=== PATIENT | male | born 1960 | race Caucasian/White ===

== ENCOUNTER 2019-08-05 10:04 | Emergency (ER) | payer OTHER ==
[~2019-08-05] VITALS: Ht 175.3 cm; Wt 74.9 kg
[2019-08-05 10:40] LABS: BASOPHILS # (AUTO) 0.1 X10'3 (0-0.2); BASOPHILS % (AUTO) 0.7 % (0-1); EOSINOPHILS # (AUTO) 0.1 X10'3 (0-0.9); EOSINOPHILS % (AUTO) 1.2 % (0-6); HEMATOCRIT 47.4 % (42.0-52.0); HEMOGLOBIN 16.2 g/dl (14.0-17.9); LYMPHOCYTES # (AUTO) 2.4 X10'3 (1.1-4.8); LYMPHOCYTES % (AUTO) 20.9 % (21-51); MEAN CORPUSCULAR HEMOGLOBIN 32.1 PG (27.0-31.0); MEAN CORPUSCULAR HGB CONC 34.1 g/dL (33.0-36.5); MEAN CORPUSCULAR VOLUME 94.3 FL (78-98); MEAN PLATELET VOLUME 7.9 FL (7.4-10.4); MONOCYTES % (AUTO) 8.6 % (2-12); NEUTROPHILS # (AUTO) 7.9 X10'3 (1.8-7.7); NEUTROPHILS % (AUTO) 68.6 % (42-75); PLATELET COUNT 308 X10'3 (140-440); RED BLOOD COUNT 5.03 X10'6 (4.70-6.10); RED CELL DISTRIBUTION WIDTH 14.4 % (11.5-14.5); WHITE BLOOD COUNT 11.5 X10'3 (4.5-11.0)
[2019-08-05 10:44] LABS: CLARITY,URINE CLEAR (Clear); COLOR,URINE YELLOW (Yellow); GLUCOSE, URINE NEGATIVE (Neg); KETONES,URINE NEGATIVE (Neg); LEUKOCYTE ESTERASE ,URINE NEGATIVE (Neg); NITRITES, URINE NEGATIVE (Neg); OCCULT BLOOD,URINE NEGATIVE (Neg); PROTEIN,URINE NEGATIVE (Neg); UROBILINOGEN,URINE 0.2 E.U/dL (0.2-1.0)
[2019-08-05 10:46] LABS: UA COLLECTION TYPE VOIDED
[2019-08-05 10:51] LABS: PARTIAL THROMBOPLASTIN TIME 29 SECONDS (22-32)
[2019-08-05 10:55] LABS: ALANINE AMINOTRANSFERASE 25 U/L (12-78); ALBUMIN 3.7 G/DL (3.4-5.0); ALBUMIN/GLOBULIN RATIO 0.9 (1.1-1.5); ALKALINE PHOSPHATASE 79 IU/L (46-116); ANION GAP 6 (8-16); ASPARTATE AMINO TRANSFERASE 17 U/L (10-37); BILIRUBIN,TOTAL 1.5 MG/DL (0.1-1.0); BLOOD UREA NITROGEN 9 MG/DL (7-18); BUN/CREATININE RATIO 7.4 (5.4-32.0); CALCIUM 8.9 MG/DL (8.5-10.1); CHLORIDE 103 MMOL/L (99-107); CREATININE 1.21 MG/DL (0.60-1.10); GLUCOSE 95 MG/DL (70-104); LIPASE 254 U/L (73-393); POTASSIUM 3.6 MMOL/L (3.5-5.1); SODIUM 138 MMOL/L (135-145); TOTAL CARBON DIOXIDE 29.5 MMOL/L (24-32); TOTAL PROTEIN 7.8 G/DL (6.4-8.2); eGFR 61 ML/MIN
[2019-08-05] MEDS ORDERED: iohexol 300mg/ml 100ml inj. ONE (10:58)
[2019-08-05] MEDS ORDERED: amox tr/potassium clavulanate 875/125mg TAB PO ONE (11:35)
[2019-08-05] MEDS ORDERED: AMOX-580 PO (11:36)
[2019-08-05 11:46] VITALS: BP 134/87
== END 2019-08-05 12:02 | disposition home or self-care (01) ==
LOC: ER 10:05
DX: K57.92 Diverticulitis of intestine, part unspecified, without perforation or abscess without bleeding (principal)
CPT/HCPCS: 36415; 74177; 80053; 81003; 83690; 85025; 85610; 85730; 99285; Q9967

== ENCOUNTER 2021-08-09 06:19 | Day surgery (SDC) | payer BC ==
[2021-08-04 15:13] LABS: CLARITY,URINE CLEAR (Clear); COLOR,URINE YELLOW (Yellow); GLUCOSE, URINE NEGATIVE (Neg); KETONES,URINE NEGATIVE (Neg); LEUKOCYTE ESTERASE ,URINE NEGATIVE (Neg); NITRITES, URINE NEGATIVE (Neg); OCCULT BLOOD,URINE NEGATIVE (Neg); PH,URINE 5.5 (4.8-8.0); PROTEIN,URINE NEGATIVE (Neg); UROBILINOGEN,URINE 0.2 E.U/dL (0.2-1.0)
[2021-08-04 15:16] LABS: UA COLLECTION TYPE NON-SPECIFIED
[2021-08-04 15:19] LABS: BASOPHILS % (AUTO) 0.4 % (0-1); EOSINOPHILS # (AUTO) 0.2 X10'3 (0-0.9); MEAN CORPUSCULAR HEMOGLOBIN 30.6 PG (27.0-31.0); MEAN CORPUSCULAR VOLUME 92.8 FL (78-98); MEAN PLATELET VOLUME 7.4 FL (7.4-10.4); MONOCYTES # (AUTO) 0.7 X10'3 (0-0.9); MONOCYTES % (AUTO) 10.3 % (2-12); NEUTROPHILS # (AUTO) 2.8 X10'3 (1.8-7.7); NEUTROPHILS % (AUTO) 41.3 % (42-75); PRE OP HEMATOCRIT 45.9 % (42.0-52.0); PRE OP HEMOGLOBIN 15.1 g/dL (14.0-17.9); PRE OP PLATELET COUNT 292 X10'3 (140-440); RED BLOOD COUNT 4.94 X10'6 (4.70-6.10); RED CELL DISTRIBUTION WIDTH 14.5 % (11.5-14.5)
[2021-08-04 15:29] LABS: ALBUMIN 3.6 G/DL (3.4-5.0); ALBUMIN/GLOBULIN RATIO 0.8 (1.1-1.5); ALKALINE PHOSPHATASE 66 IU/L (46-116); BLOOD UREA NITROGEN 13 MG/DL (7-18); BUN/CREATININE RATIO 11.8 (5.4-32.0); CALCIUM 9.1 MG/DL (8.5-10.1); CHLORIDE 103 MMOL/L (99-107); PRE OP ALT 31 U/L (30-65); PRE OP ANION GAP 12 (8-16); PRE OP AST 17 U/L (10-37); PRE OP BILIRUB, TOTAL 0.4 MG/DL (0.0-1.0); PRE OP GLUCOSE 88 MG/DL (70-104); PRE OP POTASSIUM 4.1 MMOL/L (3.4-5.1); PRE OP SODIUM 142 MMOL/L (135-145); TOTAL CARBON DIOXIDE 26.9 MMOL/L (24-32); TOTAL PROTEIN 7.9 G/DL (6.4-8.2); eGFR 68 ML/MIN
[2021-08-09] VITALS (16 sets, daily range): BP systolic 118–140; BP diastolic 50–86
[~2021-08-09] VITALS: Ht 175.3 cm; Wt 72.6 kg
[~2021-08-09 06:19] MED LIST: FLO0.4C PO; cefazolin/dext.iso 2gm/50ml IV ONE; famotidine 20mg tablet PO ONE; ringers solution, lacted 1,000 ML IV SCH
[2021-08-09] MEDS ORDERED: NO HOME MEDS (07:15)
[2021-08-09] MEDS ORDERED: LIDOcaine 1% (10mg/ml)w/preservative inj. 20ml MDV ONE (07:43)
[2021-08-09] MEDS ORDERED: BUPIVAcaine 0.5% inj/PF 30 ML ONE (07:44)
[2021-08-09] MEDS ORDERED: ringers solution, lacted 1,000 ML IV SCH (08:20)
[2021-08-09] MEDS ORDERED: hydrALAZINE 20mg/ml inj. IV PRN (08:20)
[2021-08-09] MEDS ORDERED: fentaNYL/PF 50MCG/1 ML 2ML syringe IV PRN ×2 (08:20)
[2021-08-09] MEDS ORDERED: labetalol 20mg/4ml (5mg/ml) syringe IV PRN (08:20)
[2021-08-09] MEDS ORDERED: ondansetron/PF 4mg/2ml inj IV PRN (08:20)
[2021-08-09] MEDS ORDERED: morphine 2 MG/ML inj. syringe IV PRN (08:20)
[2021-08-09] MEDS ORDERED: FENTANYL CITRATE/PF 50 MCG/1 ML VIAL ONE (08:26)
[2021-08-09] MEDS ORDERED: midazolam 1 mg/ML 2ml injection ONE (08:26)
[2021-08-09] MEDS ORDERED: LIDOcaine 2% (20mg/ml) 5ml vial ONE (08:27)
[2021-08-09] MEDS ORDERED: dexamethasone sod phosphate 4mg/ml inj. ONE (08:27)
[2021-08-09] MEDS ORDERED: propofol inj 20 ML IV ONE (08:27)
[2021-08-09] MEDS ORDERED: rocuronium 10mg/ml inj IV ONE ×2 (08:27→09:45)
[2021-08-09] MEDS ORDERED: neostigmine methylsulfate 1 MG/ML 10ml vial ONE (08:27)
[2021-08-09] MEDS ORDERED: glycopyrrolate 0.2mg/ml inj ONE (08:27)
[2021-08-09] MEDS ORDERED: ondansetron/PF 4mg/2ml inj ONE (08:27)
[2021-08-09] MEDS ORDERED: sevoflurane 250ml liquid IH ONE (08:44)
[2021-08-09] MEDS ORDERED: labetalol 20mg/4ml (5mg/ml) syringe IV ONE (09:27)
--- NOTE | 2021-08-09 10:31 | NUR ---
Received from OR via [facility], accompanied by Anesthesiologist DR MEHTA and report given by Anesthesiolgist. PT PRESENTS WITH 20G RIGHT HAND, 3 SITES ABD GIOVANNA WALLACE. Addendum: 08/09/21 at 1043 by Kristina De RN, RN Amended: Links added.
[2021-08-09] MEDS: morphine 4 MG/ML inj SYRINge IV PRN ×2 (10:56→11:23)
--- NOTE | 2021-08-09 12:10 | NUR ---
ASSUMED CARE OF PATIENT. ON ROOM AIR AT 96%, BP 133/84, AFEBRILE, RESP 15. HR 84. PATIENT ALERT AND ORIENTED WAITING TO URINATE POST OP. WILL CONTINUE TO PUSH FLUIDS PO AND ENCOURAGE AMBULATION. Addendum: 08/09/21 at 1235 by Kirsten Castro RN Amended: Links added.
--- NOTE | 2021-08-09 12:18 | NUR ---
REPORT GIVEN TO PAM FRAZIER, PT TAKEN TO ROOM 244A. Addendum: 08/09/21 at 1219 by Kristina De RN, RN Amended: Links added.
--- NOTE | 2021-08-09 13:30 | NUR ---
BLADDER SCANNED THE PATIENT. HE HAS GREATER THAN 650 IN HIS BLADDER AND IS DISTENDED. HE REFUSES A F/C PLACEMENT AT THIS TIME. HE WANT TO TRY TO AMBULATE AND WAIT ANOTHER HOUR. Addendum: 08/09/21 at 1431 by Kirsten Castro RN Amended: Links added.
--- NOTE | 2021-08-09 14:40 | NUR ---
PATIENT IS STRONGLY REFUSING A F/C. CALLED DR MENDEZ AND HE SAID TO LET THE PATIENT WAIT IT OUT. WILL CONTINUE TO MONITOR. Addendum: 08/09/21 at 1441 by Kirsten Castro RN Amended: Links added.
--- NOTE | 2021-08-09 15:43 | NUR ---
PATIENT IS STABLE FOR DISCHARGE BUT UNABLE TO URINATE. POST OP VITALS COMPLETE. Addendum: 08/09/21 at 1544 by Kirsten Castro RN Amended: Links added.
--- NOTE | 2021-08-09 16:51 | NUR ---
BLADDER SCANNED PATIENT AGAIN AT 1630 PATIENT HAD 826 LM OF URINE IN THE BLADDER. THE PATIENT CONSENTED TO A F/C. PLACED F/C 800 OUT. EDUCATED PATIENT ON HOW TO MAINTAIN AND KEEP F/C INFECTION FREE. SENT PATIENT HOME WITH POST OP INSTRUCTIONS FOR HIS SURGERIES AND HIS DO CARE. READ THROUGH THEM AND ALS WENT OVER CARE WITH SON. HAD SON DEMONSTRATE HOW TO EFFECTIVELY DRAIN CATHETER. PATIENT MEETS DISCHARGE CRITERIA. VSS. BELONGINGS SENT WITH PATIENT. WHEELED PATIENT TO THE CAR. Addendum: 08/09/21 at 1713 by Kirsten Castro RN Amended: Links added.
== END 2021-08-09 16:51 | disposition home or self-care (01) ==
LOC: PAS 06:19
PROVIDERS: ATTEND Surgery
DX: K40.90 Unilateral inguinal hernia, without obstruction or gangrene, not specified as recurrent (principal); Z30.2 Encounter for sterilization; N40.0 Benign prostatic hyperplasia without lower urinary tract symptoms; Z98.890 Other specified postprocedural states; Z79.899 Other long term (current) drug therapy; Z86.73 Personal history of transient ischemic attack (TIA), and cerebral infarction without residual deficits; Z72.89 Other problems related to lifestyle; Z20.822 Contact with and (suspected) exposure to COVID-19
CPT/HCPCS: 36415; 49650; 55250; 80053; 81003; 82948; 85025; 93005; C1758; C1781; C9803; J0690; J1100; J2250; J2270; J2405; J2704; J2710; J3010; J3490; J7030; J7120; S0020; S2900; U0003; U0005; Z7506; Z7508; Z7512; A4215; A4618